=== PATIENT | female | born 1960 | race Caucasian/White ===

== ENCOUNTER 2018-11-01 17:50 | Emergency (ER) | payer OTHER ==
[2018-11-01] MEDS: SILVER SULFADIAZINE 1% 25 GM CR TOP (19:33)
[2018-11-01] MEDS: IBUPROFEN 600 MG TAB PO (19:33)
[2018-11-01] MEDS: morphine LIQ (10 MG/5 ML) CUP PO (19:34)
== END 2018-11-01 20:43 | disposition home or self-care (01) ==
LOC: FTE 17:50
DX: T21.25XA Burn of second degree of buttock, initial encounter (principal); I10 Essential (primary) hypertension; F17.210 Nicotine dependence, cigarettes, uncomplicated; X11.8XXA Contact with other hot tap-water, initial encounter; Y92.9 Unspecified place or not applicable
CPT/HCPCS: 16000; 99283-25